=== PATIENT | male | born 1950 | race African-American/Black ===

== ENCOUNTER 2018-12-08 04:13 | Inpatient (IN) | payer MEDICARE, MEDICAID ==
[~2018-12-08] VITALS: Ht 180.3 cm; Wt 73.2 kg
[2018-12-08] MEDS ORDERED: ENALAPRIL 2.5MG/2ML VIAL 2ML IV ONE (05:00)
[2018-12-08] MEDS ORDERED: NITROGLYCERIN OINT 1GM/INCH UDPKT TD ONE (05:00)
[2018-12-08 05:16] LABS: CHLORIDE 116 mEq/L (98-107)
[2018-12-08 05:18] LABS: BASOPHILS % 0.8 % (0.0-2.0); EOSINOPHILS % 1.9 % (0.0-5.0); HEMATOCRIT. 41.8 % (42.0-52.0); HEMOGLOBIN. 13.5 g/dL (14.0-18.0); LYMPHOCYTES % 19.6 % (20.0-50.0); MEAN CORPUSCULAR HEMOGLOBIN 32.5 pg (28.0-32.0); MEAN CORPUSCULAR VOLUME 100.8 fL (80.0-94.0); MEAN PLATELET VOLUME 8.2 fl (7.4-10.4); MONOCYTES % 5.3 % (2.0-8.0); NEUTROPHILS % 72.4 % (40.0-76.0); PLATELET 239 x1000/uL (130-400); RED BLOOD CELL COUNT 4.15 mill/uL (4.7-6.1); RED CELL DISTRIBUTION WIDTH 15.3 % (11.6-14.6)
[2018-12-08 05:23] LABS: BG BASE EXCESS -8.9 mmol/L (-2.0-2.0); BG DEOXYHEMOGLOBIN 9.4 % (0.0-5.0); BG FRACTION INSPIRED OXYGEN 21; BG HCO3 ACT 15.6 mmol/L (22.0-26.0); BG METHEMOGLOBIN 0.1 % (0.0-1.5); BG OXYGEN SATURATION 90.5 % (92.0-98.5); BG OXYHEMOGLOBIN 89.5 % (94.0-97.0); BG PCO2 29.9 mmHg (35.0-45.0); BG PH 7.334 (7.350-7.450); BG SAMPLE SITE RIGHT RADIAL; BG TOTAL HEMOGLOBIN 13.9 g/dL (12.0-18.0); BG VENT MODE ROOM AIR
[2018-12-08] MEDS ORDERED: CLONIDINE 0.1MG TABLET PO PRN (10:00)
[2018-12-08] MEDS ORDERED: ONDANSETRON HCL 4MG/2ML INJ IV PRN (10:00)
[2018-12-08] MEDS ORDERED: DOCUSATE SODIUM 100MG CAPSULE PO PRN (10:00)
[2018-12-08] MEDS ORDERED: LORAZEPAM 0.5MG TABLET PO PRN (10:00)
[2018-12-08] MEDS ORDERED: IPRATROPIUM/ALBUTEROL 0.5-3(2.5)MG/3ML NEB INH PRN (10:00)
[2018-12-08 10:35] LABS: PHOSPHORUS 2.6 mg/dL (2.5-4.9)
[2018-12-08 10:40] LABS: CREATINE KINASE MB FRACTION 6.5 ng/mL (0.5-3.6)
[2018-12-08] MEDS: HYDROCODONE/ACETAMINOPHEN 5/325MG TABLET PO PRN (10:44)
[2018-12-08 11:28] LABS: HEPATITIS B SURFACE ANTIGEN NEGATIVE
[2018-12-08 11:58] LABS: HEPATITIS A AB IGM NEGATIVE (NEGATIVE)
[2018-12-08 12:00] VITALS: BP 124/97
[2018-12-08] MEDS ORDERED: IOHEXOL-350 100 ML BOTTLE ONE (14:21)
[2018-12-08 16:00] VITALS: BP 130/100
[2018-12-08] MEDS ORDERED: FUROSEMIDE 40MG/4ML VIAL IVP SCH (16:30)
[2018-12-08 18:21] LABS: VITAMIN B12 SERUM 917 pg/mL (211-911)
[2018-12-08] MEDS: FUROSEMIDE 40MG/4ML VIAL IVP SCH (18:26)
[2018-12-08] MEDS: ASPIRIN 81MG EC TABLET PO SCH (18:26)
[2018-12-08] MEDS: LISINOPRIL 5MG TABLET PO SCH (18:26)
[2018-12-08] MEDS: NITROGLYCERIN OINT 1GM/INCH UDPKT TD SCH ×2 (18:27→21:57)
[2018-12-08 20:23] VITALS: BP_SYST 118; BP_SYST 128; BP_DIAS 75; BP_DIAS 89
[2018-12-08 22:32] LABS: *AMPHETAMINES SCREEN URINE PRESUMTIVE POSITIVE (NEGATIVE)
[2018-12-08 22:33] LABS: *BARBITURATES SCREEN URINE NEGATIVE (NEGATIVE); *BENZODIAZEPINES SCREEN URINE NEGATIVE (NEGATIVE); *COCAINE SCREEN URINE NEGATIVE (NEGATIVE); METHADONE URINE SCREEN NEGATIVE (NEGATIVE); OPIATES URINE SCREEN NEGATIVE (NEGATIVE)
[2018-12-08 22:34] LABS: CANNABINOID URINE SCREEN PRESUMTIVE POSITIVE (NEGATIVE); PHENCYCLIDINE URINE SCREEN NEGATIVE (NEGATIVE)
[2018-12-09 00:29] VITALS: BP 108/69
[2018-12-09 04:25] VITALS: BP 114/66
[2018-12-09] MEDS: ACETAMINOPHEN 325MG TABLET PO PRN (04:32)
[2018-12-09 06:20] LABS: BASOPHILS % 0.6 % (0.0-2.0); EOSINOPHILS % 2.4 % (0.0-5.0); HEMATOCRIT. 41.1 % (42.0-52.0); HEMOGLOBIN. 13.7 g/dL (14.0-18.0); LYMPHOCYTES % 21.9 % (20.0-50.0); MEAN CORPUSCULAR HEMOGLOBIN 33.1 pg (28.0-32.0); MEAN CORPUSCULAR VOLUME 99.4 fL (80.0-94.0); MEAN PLATELET VOLUME 8.8 fl (7.4-10.4); MONOCYTES % 10.1 % (2.0-8.0); PLATELET 260 x1000/uL (130-400); RED BLOOD CELL COUNT 4.13 mill/uL (4.7-6.1); RED CELL DISTRIBUTION WIDTH 15.1 % (11.6-14.6)
[2018-12-09 06:22] LABS: CHLORIDE 111 mEq/L (98-107)
[2018-12-09] MEDS: NITROGLYCERIN OINT 1GM/INCH UDPKT TD SCH ×3 (06:27→21:10)
[2018-12-09] MEDS: FUROSEMIDE 40MG/4ML VIAL IVP SCH ×2 (06:27→17:47)
[2018-12-09 08:00] VITALS: BP_SYST 112; BP_SYST 116; BP_SYST 120; BP_DIAS 72; BP_DIAS 73; BP_DIAS 76
[2018-12-09] MEDS: ASPIRIN 81MG EC TABLET PO SCH (09:01)
[2018-12-09] MEDS: LISINOPRIL 5MG TABLET PO SCH (09:02)
[2018-12-09 12:00] VITALS: BP_SYST 100; BP_SYST 112; BP_SYST 118; BP_DIAS 59; BP_DIAS 73; BP_DIAS 76
[2018-12-09 16:00] VITALS: BP_SYST 119; BP_SYST 120; BP_SYST 125; BP_DIAS 84; BP_DIAS 85
[2018-12-09 20:00] VITALS: BP_SYST 107; BP_SYST 108; BP_SYST 140; BP_DIAS 62; BP_DIAS 71
[2018-12-09] MEDS: HYDROCODONE/ACETAMINOPHEN 5/325MG TABLET PO PRN (22:57)
[2018-12-10] VITALS: BP_SYST 104; BP_SYST 121; BP_DIAS 60; BP_DIAS 84
[2018-12-10 04:00] VITALS: BP 118/86
[2018-12-10 05:20] LABS: HIV SCREEN 4G Non Reactive (Non Reactive)
[2018-12-10] MEDS: NITROGLYCERIN OINT 1GM/INCH UDPKT TD SCH (06:14)
[2018-12-10] MEDS: FUROSEMIDE 40MG/4ML VIAL IVP SCH (06:15)
[2018-12-10 06:35] LABS: BASOPHILS % 0.6 % (0.0-2.0); EOSINOPHILS % 2.8 % (0.0-5.0); HEMATOCRIT. 44.1 % (42.0-52.0); HEMOGLOBIN. 14.4 g/dL (14.0-18.0); LYMPHOCYTES % 23.8 % (20.0-50.0); MEAN CORPUSCULAR HEMOGLOBIN 32.2 pg (28.0-32.0); MEAN CORPUSCULAR VOLUME 98.5 fL (80.0-94.0); MEAN PLATELET VOLUME 8.6 fl (7.4-10.4); NEUTROPHILS % 61.8 % (40.0-76.0); PLATELET 276 x1000/uL (130-400); RED BLOOD CELL COUNT 4.47 mill/uL (4.7-6.1)
[2018-12-10 07:03] LABS: CHLORIDE 106 mEq/L (98-107)
[2018-12-10 08:00] VITALS: BP_SYST 119; BP_SYST 92; BP_SYST 97; BP_DIAS 63; BP_DIAS 69; BP_DIAS 76
[2018-12-10] MEDS: LISINOPRIL 5MG TABLET PO SCH (09:00)
[2018-12-10] MEDS: ASPIRIN 81MG EC TABLET PO SCH (09:28)
[2018-12-10 13:00] VITALS: BP 90/70
[2018-12-10] MEDS: ACETAMINOPHEN 325MG TABLET PO PRN (13:18)
[2018-12-10 15:52] VITALS: BP 99/69
[2018-12-10 20:00] VITALS: BP 103/68
[2018-12-10] MEDS: FUROSEMIDE 40MG TABLET PO SCH (21:01)
[2018-12-11] VITALS: BP 112/78
[2018-12-11 04:00] VITALS: BP_SYST 93; BP_SYST 96; BP_SYST 99; BP_DIAS 70; BP_DIAS 71; BP_DIAS 72
[2018-12-11 06:49] LABS: BASOPHILS % 0.9 % (0.0-2.0); EOSINOPHILS % 2.2 % (0.0-5.0); HEMATOCRIT. 49.7 % (42.0-52.0); HEMOGLOBIN. 16.7 g/dL (14.0-18.0); LYMPHOCYTES % 22.8 % (20.0-50.0); MEAN CORPUSCULAR HEMOGLOBIN 33.1 pg (28.0-32.0); MEAN CORPUSCULAR VOLUME 98.3 fL (80.0-94.0); MEAN PLATELET VOLUME 8.5 fl (7.4-10.4); MONOCYTES % 11.6 % (2.0-8.0); NEUTROPHILS % 62.5 % (40.0-76.0); PLATELET 289 x1000/uL (130-400); RED BLOOD CELL COUNT 5.06 mill/uL (4.7-6.1); RED CELL DISTRIBUTION WIDTH 14.6 % (11.6-14.6)
[2018-12-11 07:51] VITALS: BP 95/69
[2018-12-11 08:17] LABS: CHLORIDE 102 mEq/L (98-107)
[2018-12-11] MEDS: ASPIRIN 81MG EC TABLET PO SCH (08:44)
[2018-12-11] MEDS: FUROSEMIDE 40MG TABLET PO SCH (08:44)
[2018-12-11] MEDS ORDERED: LISINOPRIL 2.5MG TABLET PO SCH (09:00)
[2018-12-11 12:17] VITALS: BP 129/79
[2018-12-11] MEDS ORDERED: FURO40TA5 PO (15:26)
[2018-12-11] MEDS ORDERED: LISI2.5T47 PO (15:26)
[2018-12-11] MEDS ORDERED: ASPI-1158 PO (15:26)
[2018-12-11] MEDS ORDERED: CARV3.1242 MT (15:28)
[2018-12-11 15:31] VITALS: BP 129/79
[2018-12-11 15:56] VITALS: BP 127/79
== END 2018-12-11 16:10 | disposition home health service (06) | DRG 291 ==
LOC: ER 04:13 → 6WST 05:25 → EDBEDREQ 05:28 → EDBEDREQTM 05:28 → ENRESERV 07:18
PROVIDERS: ADMIT Internal Medicine; ATTEND Internal Medicine
DX: I11.0 Hypertensive heart disease with heart failure (principal); J96.01 Acute respiratory failure with hypoxia; E44.0 Moderate protein-calorie malnutrition; E87.2 Acidosis; J90 Pleural effusion, not elsewhere classified; I50.23 Acute on chronic systolic (congestive) heart failure; I42.0 Dilated cardiomyopathy; D53.9 Nutritional anemia, unspecified; E78.5 Hyperlipidemia, unspecified; F10.10 Alcohol abuse, uncomplicated; E78.00 Pure hypercholesterolemia, unspecified; F12.90 Cannabis use, unspecified, uncomplicated; F15.90 Other stimulant use, unspecified, uncomplicated; F17.200 Nicotine dependence, unspecified, uncomplicated; S82.892A Other fracture of left lower leg, initial encounter for closed fracture; X58.XXXA Exposure to other specified factors, initial encounter; R74.0 Nonspecific elevation of levels of transaminase and lactic acid dehydrogenase [LDH]; Z59.0 Homelessness; Z79.82 Long term (current) use of aspirin; Z79.899 Other long term (current) drug therapy; Z82.49 Family history of ischemic heart disease and other diseases of the circulatory system; Z87.11 Personal history of peptic ulcer disease; Y93.89 Activity, other specified; Y92.89 Other specified places as the place of occurrence of the external cause; Y99.8 Other external cause status; Z68.22 Body mass index [BMI] 22.0-22.9, adult
CPT/HCPCS: 36415; 36600; 71045; 71275; 76700; 80048; 80061; 80076; 80305; 82375; 82550; 82553; 82607; 82805; 82962; 83605; 83735; 83880; 84100; 84145; 84443; 84484; 85379; 86705; 86709; 86803; 87340; 87389; 93005; 93306; 93970; 96374; 99285; J1940; J3490; Q9967

== ENCOUNTER 2020-09-09 23:14 | Inpatient (IN) | payer BC, OTHER ==
[~2020-09-09] VITALS: Ht 177.8 cm; Wt 70.8 kg
[~2020-09-09 23:14] MED LIST: ALBU18HF2 IH; ASPI-1406 PO; CARV3.1242 MT; COR6 PO; FURO-151 MT; FURO40TA5 PO; LISI2.5T47 PO; LOSA25TA3 PO
[2020-09-10] MEDS ORDERED: FUROSEMIDE 40MG/4ML VIAL IV ONE
[2020-09-10] MEDS ORDERED: NITROGLYCERIN OINT 1GM/INCH UDPKT TD ONE
[2020-09-10] MEDS ORDERED: ASPIRIN 81MG TABLET PO ONE
[2020-09-10 00:12] LABS: BASOPHILS % 0.5 % (0.0-2.0); EOSINOPHILS % 0.2 % (0.0-5.0); HEMATOCRIT. 46.2 % (42.0-52.0); HEMOGLOBIN. 14.4 g/dL (14.0-18.0); MEAN CORPUSCULAR HEMOGLOBIN 31.4 pg (28.0-32.0); MEAN CORPUSCULAR VOLUME 100.9 fL (80.0-94.0); MEAN PLATELET VOLUME 10.1 fl (7.4-10.4); MONOCYTES % 7.4 % (2.0-8.0); NEUTROPHILS % 70.9 % (40.0-76.0); PLATELET 245 x1000/uL (130-400); RED BLOOD CELL COUNT 4.58 mill/uL (4.7-6.1); RED CELL DISTRIBUTION WIDTH 17.8 % (11.6-14.6)
[2020-09-10 00:24] LABS: INR 1.3; PARTIAL THROMBOPLASTIN TIME 29.1 sec (23.4-31.0); PROTHROMBIN TIME 13.1 sec (9.6-11.0)
[2020-09-10 00:29] LABS: CHLORIDE 114 mEq/L (98-107)
[2020-09-10 01:07] LABS: BG BASE EXCESS -10.9 mmol/L (-2.0-2.0); BG CARBOXYHEMOGLOBIN 0.2 % (0.5-1.5); BG DEOXYHEMOGLOBIN 0.3 % (0.0-5.0); BG FRACTION INSPIRED OXYGEN 100; BG HCO3 ACT 14.6 mmol/L (22.0-26.0); BG METHEMOGLOBIN 0.3 % (0.0-1.5); BG OXYGEN SATURATION 99.7 % (92.0-98.5); BG OXYHEMOGLOBIN 99.2 % (94.0-97.0); BG PCO2 32.4 mmHg (35.0-45.0); BG PH 7.273 (7.350-7.450); BG PO2 428.3 mmHg (75.0-100.0); BG SAMPLE SITE RIGHT BRACHIAL; BG TOTAL HEMOGLOBIN 15.2 g/dL (12.0-18.0); BG VENT MODE MASK - BIPAP
[2020-09-10 10:11] VITALS: BP 133/115
[2020-09-10 12:22] VITALS: BP 111/62
[2020-09-10 14:00] VITALS: BP 91/56
[2020-09-10] MEDS ORDERED: ONDANSETRON HCL 4MG/2ML INJ IV PRN (15:45)
[2020-09-10] MEDS ORDERED: CLONIDINE 0.1MG TABLET PO PRN (15:45)
[2020-09-10] MEDS ORDERED: ACETAMINOPHEN 325MG TABLET PO PRN (15:45)
[2020-09-10] MEDS: LOSARTAN POTASSIUM 25 MG TABLET PO SCH (15:45)
[2020-09-10 16:00] VITALS: BP 149/79
[2020-09-10] MEDS: FUROSEMIDE 40MG/4ML VIAL IVP SCH (17:35)
[2020-09-10] MEDS: ENOXAPARIN 40MG/0.4ML SYR SUBCUT SCH (17:36)
[2020-09-10] MEDS: ASPIRIN 81MG EC TABLET PO SCH (17:37)
[2020-09-10 18:00] VITALS: BP 127/64
[2020-09-10 20:00] VITALS: BP 105/72
[2020-09-10] MEDS: CARVEDILOL 6.25 MG TABLET PO SCH (20:45)
[2020-09-11] VITALS (9 sets, daily range): BP systolic 81–123; BP diastolic 42–66
[2020-09-11 01:09] LABS: CREATINE KINASE MB FRACTION 3.2 ng/mL (0.5-3.6)
[2020-09-11] MEDS: FUROSEMIDE 40MG/4ML VIAL IVP SCH ×2 (07:11→17:15)
[2020-09-11 07:15] LABS: CREATINE KINASE MB FRACTION 2.8 ng/mL (0.5-3.6)
[2020-09-11 07:21] LABS: BASOPHILS % 0.5 % (0.0-2.0); EOSINOPHILS % 1.1 % (0.0-5.0); HEMATOCRIT. 38.8 % (42.0-52.0); HEMOGLOBIN. 12.5 g/dL (14.0-18.0); LYMPHOCYTES % 20.8 % (20.0-50.0); MEAN CORPUSCULAR HEMOGLOBIN 31.1 pg (28.0-32.0); MEAN CORPUSCULAR VOLUME 96.9 fL (80.0-94.0); MEAN PLATELET VOLUME 9.8 fl (7.4-10.4); NEUTROPHILS % 67.6 % (40.0-76.0); PLATELET 196 x1000/uL (130-400); RED CELL DISTRIBUTION WIDTH 16.1 % (11.6-14.6)
[2020-09-11] MEDS: ASPIRIN 81MG EC TABLET PO SCH (08:47)
[2020-09-11] MEDS: LOSARTAN POTASSIUM 25 MG TABLET PO SCH (08:47)
[2020-09-11] MEDS: CARVEDILOL 6.25 MG TABLET PO SCH ×2 (08:48→21:00)
[2020-09-11] MEDS: ENOXAPARIN 40MG/0.4ML SYR SUBCUT SCH (17:16)
[2020-09-12] VITALS (9 sets, daily range): BP systolic 91–134; BP diastolic 40–76
[2020-09-12] MEDS: FUROSEMIDE 40MG/4ML VIAL IVP SCH ×2 (05:23→17:09)
[2020-09-12] MEDS: LOSARTAN POTASSIUM 25 MG TABLET PO SCH (09:16)
[2020-09-12] MEDS: CARVEDILOL 6.25 MG TABLET PO SCH (09:16)
[2020-09-12] MEDS: ASPIRIN 81MG EC TABLET PO SCH (09:16)
[2020-09-12] MEDS: ENOXAPARIN 40MG/0.4ML SYR SUBCUT SCH (17:09)
== END 2020-09-12 19:45 | disposition home or self-care (01) | DRG 291 ==
LOC: ER 23:46 → 5EST 09-10 02:07 → ENRESERV 09-10 08:11 → ER 09-10 08:44
PROVIDERS: ADMIT Internal Medicine; ATTEND Internal Medicine
PROC: 5A09357 Assistance with Respiratory Ventilation, Less than 24 Consecutive Hours, Continuous Positive Airway Pressure (ICD-10-PCS; principal; 2020-09-10)
DX: I13.0 Hypertensive heart and chronic kidney disease with heart failure and stage 1 through stage 4 chronic kidney disease, or unspecified chronic kidney disease (principal); I50.23 Acute on chronic systolic (congestive) heart failure; J96.01 Acute respiratory failure with hypoxia; N17.9 Acute kidney failure, unspecified; E87.2 Acidosis; K76.1 Chronic passive congestion of liver; E78.5 Hyperlipidemia, unspecified; J44.9 Chronic obstructive pulmonary disease, unspecified; I43 Cardiomyopathy in diseases classified elsewhere; N18.9 Chronic kidney disease, unspecified; E87.8 Other disorders of electrolyte and fluid balance, not elsewhere classified; I11.0 Hypertensive heart disease with heart failure; Z87.891 Personal history of nicotine dependence; Z91.19 Patient's noncompliance with other medical treatment and regimen; Z91.14 Patient's other noncompliance with medication regimen; Z79.899 Other long term (current) drug therapy; Z79.82 Long term (current) use of aspirin
CPT/HCPCS: 36415; 36600; 71045; 80048; 80053; 82375; 82550; 82553; 82805; 83880; 84484; 85025; 93005; 93306; 94660; 96374; 99291; J1650; J1940

== ENCOUNTER 2020-10-22 22:13 | Inpatient (IN) | payer BC, OTHER ==
[~2020-10-22] VITALS: Ht 172.7 cm; Wt 73.6 kg
[~2020-10-22 22:13] MED LIST changes: -CARV3.1242 MT; -FURO-151 MT; -LISI2.5T47 PO
[2020-10-22 23:30] LABS: BASOPHILS % 0.7 % (0.0-2.0); EOSINOPHILS % 4.5 % (0.0-5.0); HEMATOCRIT. 35.9 % (42.0-52.0); HEMOGLOBIN. 12.2 g/dL (14.0-18.0); LYMPHOCYTES % 20.6 % (20.0-50.0); MEAN CORPUSCULAR HEMOGLOBIN 31.1 pg (28.0-32.0); MEAN CORPUSCULAR VOLUME 91.8 fL (80.0-94.0); MEAN PLATELET VOLUME 7.6 fl (7.4-10.4); MONOCYTES % 14.3 % (2.0-8.0); NEUTROPHILS % 59.9 % (40.0-76.0); PLATELET 366 x1000/uL (130-400); RED BLOOD CELL COUNT 3.91 mill/uL (4.7-6.1); RED CELL DISTRIBUTION WIDTH 14.5 % (11.6-14.6)
[2020-10-22 23:38] LABS: CHLORIDE 108 mEq/L (98-107)
[2020-10-23 00:02] LABS: CLARITY URINE CLEAR (CLEAR); COLOR URINE YELLOW (YELLOW); KETONES URINE NEGATIVE (NEGATIVE); LEUKOCYTE ESTERASE URINE NEGATIVE (NEGATIVE); NITRITE URINE NEGATIVE (NEGATIVE); OCCULT BLOOD URINE NEGATIVE (NEGATIVE); PH URINE 5.5 (4.5-8.0); PROTEIN URINE 1+ (NEGATIVE); SPECIFIC GRAVITY URINE 1.023 (1.005-1.030); UROBILINOGEN URINE 0.2 E.U./dL (0.2-1.0)
[2020-10-23] MEDS ORDERED: CLONIDINE 0.1MG TABLET PO PRN (00:15)
[2020-10-23] MEDS ORDERED: ONDANSETRON HCL 4MG/2ML INJ IV PRN (00:15)
[2020-10-23] MEDS: SODIUM CHLORIDE 0.9% 1,000 ML IV SCH ×2 (00:40→18:02)
[2020-10-23] MEDS: ACETAMINOPHEN 325MG TABLET PO PRN ×2 (00:50→22:19)
[2020-10-23] MEDS: ASPIRIN 81MG EC TABLET PO SCH (02:32)
[2020-10-23 04:45] LABS: CREATINE KINASE 169 IU/L (39-308)
[2020-10-23 04:46] LABS: CREATINE KINASE MB FRACTION 1.3 ng/mL (0.5-3.6)
[2020-10-23] MEDS ORDERED: HEPARIN SODIUM 1,000 UNIT/1ML VIAL IV ONE (07:33)
[2020-10-23] MEDS: CARVEDILOL 6.25 MG TABLET PO SCH ×2 (09:00→20:43)
[2020-10-23] MEDS: LOSARTAN POTASSIUM 25 MG TABLET PO SCH (09:00)
[2020-10-23] MEDS: FUROSEMIDE 40MG TABLET PO SCH ×2 (09:00→20:46)
[2020-10-23] MEDS ORDERED: IODIXANOL 320MG/ML 200ML BOTTLE ONE (09:49)
[2020-10-23] MEDS ORDERED: VERAPAMIL HCL 2.5 MG/1 ML 2ML VIAL IV ONE (09:49)
[2020-10-23] MEDS ORDERED: LIDOCAINE HCL 1% 20ML VIAL (Pyxis) INJ ONE (09:49)
[2020-10-23] MEDS ORDERED: MIDAZOLAM HCL 2 MG/2 ML VIAL ONE (09:59)
[2020-10-23] MEDS ORDERED: FENTANYL CITRATE/PF 50MCG/ML 2ML VIAL ONE (09:59)
[2020-10-23] MEDS ORDERED: ATROPINE SULFATE 1MG/10ML SYR IV PRN (12:30)
[2020-10-23 14:30] VITALS: BP 105/66
[2020-10-23 16:08] VITALS: BP 124/66
[2020-10-23] MEDS ORDERED: ACET167L14 PO (16:21)
[2020-10-23] MEDS ORDERED: *PATIENT'S OWN MEDICATION STORAGE XX SCH (16:45)
[2020-10-23 17:54] VITALS: BP 107/75
[2020-10-23 18:24] LABS: CREATINE KINASE 120 IU/L (39-308)
[2020-10-23 18:25] LABS: CREATINE KINASE MB FRACTION < 1.0 ng/mL (0.5-3.6)
[2020-10-23 20:02] VITALS: BP 105/55
[2020-10-23 22:02] VITALS: BP 122/85
[2020-10-23] MEDS ORDERED: MORPHINE SULFATE 2 MG/ML CPJ (NOT FOR IM USE) IV PRN (23:45)
[2020-10-24] VITALS (12 sets, daily range): BP systolic 94–129; BP diastolic 55–83
[2020-10-24] MEDS: HYDROCODONE/ACETAMINOPHEN 5/325MG TABLET PO PRN ×4 (00:41→15:40)
[2020-10-24 06:22] LABS: BASOPHILS % 0.8 % (0.0-2.0); HEMATOCRIT. 34.1 % (42.0-52.0); HEMOGLOBIN. 11.3 g/dL (14.0-18.0); LYMPHOCYTES % 24.1 % (20.0-50.0); MEAN CORPUSCULAR HEMOGLOBIN 30.7 pg (28.0-32.0); MEAN CORPUSCULAR VOLUME 92.9 fL (80.0-94.0); MEAN PLATELET VOLUME 7.9 fl (7.4-10.4); MONOCYTES % 10.5 % (2.0-8.0); NEUTROPHILS % 59.6 % (40.0-76.0); PLATELET 395 x1000/uL (130-400); RED BLOOD CELL COUNT 3.67 mill/uL (4.7-6.1)
[2020-10-24 06:30] LABS: CHLORIDE 106 mEq/L (98-107)
[2020-10-24] MEDS ORDERED: DIAZEPAM 5 MG TABLET PO NR (08:00)
[2020-10-24] MEDS: ASPIRIN 81MG EC TABLET PO SCH (09:16)
[2020-10-24] MEDS: FUROSEMIDE 40MG TABLET PO SCH ×2 (09:16→21:45)
[2020-10-24] MEDS: CARVEDILOL 6.25 MG TABLET PO SCH ×2 (09:17→21:45)
[2020-10-24] MEDS: LOSARTAN POTASSIUM 25 MG TABLET PO SCH (09:17)
[2020-10-24] MEDS: SODIUM CHLORIDE 0.9% 1,000 ML IV SCH (09:52)
[2020-10-24] MEDS ORDERED: DIPHENHYDRAMINE 25MG CAPSULE PO PRN (17:00)
[2020-10-24] MEDS: HYDROCORTISONE 1% CREAM 30GM TOP SCH (21:46)
[2020-10-25] VITALS (11 sets, daily range): BP systolic 100–119; BP diastolic 29–69
[2020-10-25] MEDS: HYDROCODONE/ACETAMINOPHEN 5/325MG TABLET PO PRN ×3 (00:01→10:19)
[2020-10-25] MEDS: SODIUM CHLORIDE 0.9% 1,000 ML IV SCH ×2 (02:43→18:55)
[2020-10-25] MEDS: HYDROCORTISONE 1% CREAM 30GM TOP SCH ×2 (05:30→14:24)
[2020-10-25] MEDS: LOSARTAN POTASSIUM 25 MG TABLET PO SCH (08:33)
[2020-10-25] MEDS: ASPIRIN 81MG EC TABLET PO SCH (08:33)
[2020-10-25] MEDS: FUROSEMIDE 40MG TABLET PO SCH (08:33)
[2020-10-25] MEDS: CARVEDILOL 6.25 MG TABLET PO SCH (08:41)
== END 2020-10-25 22:23 | disposition home or self-care (01) | DRG 286 ==
LOC: ER 22:13 → ENRESERV 10-23 08:29 → 6WST 10-23 10:13 → 3WST 10-23 15:41
PROVIDERS: ADMIT Internal Medicine; ATTEND Internal Medicine
PROC: 4A023N7 Measurement of Cardiac Sampling and Pressure, Left Heart, Percutaneous Approach (ICD-10-PCS; principal; 2020-10-23)
PROC: B211YZZ Fluoroscopy of Multiple Coronary Arteries using Other Contrast (ICD-10-PCS; 2020-10-23)
DX: I13.0 Hypertensive heart and chronic kidney disease with heart failure and stage 1 through stage 4 chronic kidney disease, or unspecified chronic kidney disease (principal); I50.23 Acute on chronic systolic (congestive) heart failure; G99.2 Myelopathy in diseases classified elsewhere; I25.10 Atherosclerotic heart disease of native coronary artery without angina pectoris; E78.5 Hyperlipidemia, unspecified; Z20.822 Contact with and (suspected) exposure to COVID-19; I42.9 Cardiomyopathy, unspecified; M47.812 Spondylosis without myelopathy or radiculopathy, cervical region; N18.9 Chronic kidney disease, unspecified; G89.29 Other chronic pain; M48.02 Spinal stenosis, cervical region; Z79.899 Other long term (current) drug therapy; Z79.82 Long term (current) use of aspirin; M25.511 Pain in right shoulder
CPT/HCPCS: 36415; 71045; 72141; 80048; 80053; 81003; 82550; 82553; 83880; 84484; 85025; 87426; 93005; 93458; 97162; 99285; C1769; C1887; C1893; J1644; J2250; J3010; J3490; Q0163; Q9967

== ENCOUNTER 2020-12-01 23:40 | Inpatient (IN) | payer BC, OTHER ==
[~2020-12-01] VITALS: Ht 177.8 cm; Wt 74.0 kg
[~2020-12-01 23:40] MED LIST changes: +ACET167L14 PO
[2020-12-02] MEDS ORDERED: ASPIRIN 325MG EC TABLET PO ONE (00:15)
[2020-12-02] MEDS: NITROGLYCERIN 0.4MG TABLET SL SL PRN ×2 (00:22→00:25)
[2020-12-02 00:42] LABS: CHLORIDE 105 mEq/L (98-107)
[2020-12-02 00:44] LABS: BASOPHILS % 0.6 % (0.0-2.0); EOSINOPHILS % 1.5 % (0.0-5.0); HEMATOCRIT. 35.6 % (42.0-52.0); HEMOGLOBIN. 11.8 g/dL (14.0-18.0); LYMPHOCYTES % 16.4 % (20.0-50.0); MEAN CORPUSCULAR HEMOGLOBIN 30.1 pg (28.0-32.0); MEAN CORPUSCULAR VOLUME 90.3 fL (80.0-94.0); NEUTROPHILS % 67.5 % (40.0-76.0); PLATELET 309 x1000/uL (130-400); RED BLOOD CELL COUNT 3.94 mill/uL (4.7-6.1); RED CELL DISTRIBUTION WIDTH 15.9 % (11.6-14.6)
[2020-12-02] MEDS ORDERED: MORPHINE SULFATE 4 MG/ML CPJ (NOT FOR IM USE) IV STA (01:13)
[2020-12-02] MEDS ORDERED: ONDANSETRON HCL 4MG/2ML INJ IV STA (01:13)
[2020-12-02] MEDS ORDERED: POTASSIUM CHLORIDE INJ 40 MEQ in DEXT 5% WATER 500 ML IV NR (03:00)
[2020-12-02] MEDS: HEPARIN 25,000 UNITS PREMIX 250 ML IV SCH (05:17)
[2020-12-02 09:30] VITALS: BP 118/82
[2020-12-02] MEDS ORDERED: HEPARIN BOLUS PRN aPTT <30 IV (10:00)
[2020-12-02 12:00] VITALS: BP_SYST 118; BP_SYST 95; BP_DIAS 54; BP_DIAS 82
[2020-12-02] MEDS: HEPARIN BOLUS PRN aPTT 30-44 IV (12:51)
[2020-12-02] MEDS: HYDROCODONE/ACETAMINOPHEN 10/325MG TABLET PO PRN (13:15)
[2020-12-02] MEDS ORDERED: CLONIDINE 0.1MG TABLET PO PRN (13:30)
[2020-12-02] MEDS ORDERED: ONDANSETRON HCL 4MG/2ML INJ IV PRN (13:30)
[2020-12-02] MEDS ORDERED: IPRATROPIUM/ALBUTEROL 0.5-3(2.5)MG/3ML NEB HHN PRN (13:30)
[2020-12-02] MEDS ORDERED: DEXTROSE 50% WATER 50ML SYRINGE IV PRN (14:45)
[2020-12-02 15:56] VITALS: BP 98/68
[2020-12-02 16:06] LABS: HEMATOCRIT. 33.9 % (42.0-52.0); HEMOGLOBIN. 11.4 g/dL (14.0-18.0); MEAN CORPUSCULAR HEMOGLOBIN 30.4 pg (28.0-32.0); MEAN CORPUSCULAR VOLUME 90.5 fL (80.0-94.0); MEAN PLATELET VOLUME 8.4 fl (7.4-10.4); PLATELET 287 x1000/uL (130-400); RED BLOOD CELL COUNT 3.75 mill/uL (4.7-6.1); RED CELL DISTRIBUTION WIDTH 16.1 % (11.6-14.6)
[2020-12-02 16:13] LABS: CHLORIDE 105 mEq/L (98-107)
[2020-12-02] MEDS: BLOOD SUGAR DIAGNOSTIC STRIP TEST SCH ×2 (17:17→21:22)
[2020-12-02] MEDS: INSULIN LISPRO 100 UNITS/ML SUBCUT SCH ×2 (17:40→21:00)
[2020-12-02] MEDS: ASPIRIN 81MG EC TABLET PO SCH (17:49)
[2020-12-02 20:19] VITALS: BP 113/86
[2020-12-02] MEDS: CARVEDILOL 6.25 MG TABLET PO SCH (20:26)
[2020-12-02] MEDS: FUROSEMIDE 40MG TABLET PO SCH (20:26)
[2020-12-02] MEDS: DEXT 5%/0.45% NACL 1000ML 1,000 ML IV SCH (20:26)
[2020-12-02] MEDS: ACETAMINOPHEN 325MG TABLET PO PRN (22:02)
[2020-12-02 23:08] LABS: PLATELET ESTIMATE NORMAL
[2020-12-02 23:58] VITALS: BP 122/58
[2020-12-03 00:55] LABS: CREATINE KINASE MB FRACTION 15.8 ng/mL (0.5-3.6)
[2020-12-03] MEDS: HEPARIN BOLUS PRN aPTT 30-44 IV ×2 (03:00→16:35)
[2020-12-03 03:09] VITALS: BP 92/62
[2020-12-03] MEDS: DEXT 5%/0.45% NACL 1000ML 1,000 ML IV SCH ×2 (03:20→15:08)
[2020-12-03 05:45] VITALS: BP 106/63
[2020-12-03] MEDS: HYDROCODONE/ACETAMINOPHEN 10/325MG TABLET PO PRN (05:47)
[2020-12-03] MEDS: INSULIN LISPRO 100 UNITS/ML SUBCUT SCH ×4 (05:59→20:55)
[2020-12-03] MEDS: BLOOD SUGAR DIAGNOSTIC STRIP TEST SCH ×4 (05:59→20:55)
[2020-12-03 08:00] VITALS: BP 103/63
[2020-12-03] MEDS: ASPIRIN 81MG EC TABLET PO SCH (08:54)
[2020-12-03] MEDS: CARVEDILOL 6.25 MG TABLET PO SCH ×2 (08:54→20:53)
[2020-12-03] MEDS: LOSARTAN POTASSIUM 25 MG TABLET PO SCH (08:54)
[2020-12-03] MEDS: FUROSEMIDE 40MG TABLET PO SCH ×2 (08:54→20:55)
[2020-12-03 09:25] LABS: CHLORIDE 104 mEq/L (98-107)
[2020-12-03 09:32] LABS: BASOPHILS % 1.1 % (0.0-2.0); EOSINOPHILS % 2.4 % (0.0-5.0); HEMATOCRIT. 34.4 % (42.0-52.0); HEMOGLOBIN. 11.5 g/dL (14.0-18.0); LDL CHOLESTEROL 63 mg/dL (5-100); LYMPHOCYTES % 20.7 % (20.0-50.0); MEAN CORPUSCULAR HEMOGLOBIN 30.4 pg (28.0-32.0); MEAN CORPUSCULAR VOLUME 90.9 fL (80.0-94.0); MEAN PLATELET VOLUME 8.4 fl (7.4-10.4); NEUTROPHILS % 63.8 % (40.0-76.0); PLATELET 271 x1000/uL (130-400); RED BLOOD CELL COUNT 3.79 mill/uL (4.7-6.1); RED CELL DISTRIBUTION WIDTH 16.2 % (11.6-14.6)
[2020-12-03 09:34] LABS: HDL CHOLESTEROL 44 mg/dL (40-59)
[2020-12-03] MEDS: ACETAMINOPHEN 325MG TABLET PO PRN (10:42)
[2020-12-03] MEDS ORDERED: POTASSIUM CHLORIDE INJ 40 MEQ in DEXT 5% WATER 250 ML IV NR (13:00)
[2020-12-03] MEDS: HEPARIN 25,000 UNITS PREMIX 250 ML IV SCH (14:55)
[2020-12-03] MEDS ORDERED: POTASSIUM CHLORIDE 20MEQ TABLET SR PO NR (15:15)
[2020-12-03 16:00] VITALS: BP 100/60
[2020-12-03] MEDS ORDERED: SUMATRIPTAN SUCCINATE 6MG/0.5ML VIAL SUBCUT NR (16:00)
[2020-12-03] MEDS ORDERED: MORPHINE SULFATE 2 MG/ML CPJ (NOT FOR IM USE) IV NR (17:30)
[2020-12-03 20:00] VITALS: BP 89/62
[2020-12-03] MEDS ORDERED: NITROGLYCERIN OINT 1GM/INCH UDPKT TD PRN (20:00)
[2020-12-03] MEDS ORDERED: MORPHINE SULFATE 2 MG/ML CPJ (NOT FOR IM USE) IV PRN (22:00)
[2020-12-04] VITALS (14 sets, daily range): BP systolic 94–120; BP diastolic 45–82
[2020-12-04] MEDS: DEXT 5%/0.45% NACL 1000ML 1,000 ML IV SCH ×2 (05:45→15:43)
[2020-12-04] MEDS: INSULIN LISPRO 100 UNITS/ML SUBCUT SCH ×4 (06:17→20:42)
[2020-12-04] MEDS: BLOOD SUGAR DIAGNOSTIC STRIP TEST SCH ×4 (06:17→20:42)
[2020-12-04 06:42] LABS: BASOPHILS % 0.7 % (0.0-2.0); EOSINOPHILS % 2.5 % (0.0-5.0); HEMATOCRIT. 34.7 % (42.0-52.0); HEMOGLOBIN. 11.5 g/dL (14.0-18.0); LYMPHOCYTES % 22.4 % (20.0-50.0); MEAN CORPUSCULAR HEMOGLOBIN 29.9 pg (28.0-32.0); MEAN CORPUSCULAR VOLUME 90.3 fL (80.0-94.0); MEAN PLATELET VOLUME 8.8 fl (7.4-10.4); MONOCYTES % 12.6 % (2.0-8.0); NEUTROPHILS % 61.8 % (40.0-76.0); PLATELET 288 x1000/uL (130-400); RED BLOOD CELL COUNT 3.84 mill/uL (4.7-6.1); RED CELL DISTRIBUTION WIDTH 16.3 % (11.6-14.6)
[2020-12-04 07:40] LABS: CHLORIDE 105 mEq/L (98-107)
[2020-12-04] MEDS ORDERED: HEPARIN SODIUM 1,000 UNIT/1ML VIAL IV ONE (08:06)
[2020-12-04] MEDS: ASPIRIN 81MG EC TABLET PO SCH (09:00)
[2020-12-04] MEDS: FUROSEMIDE 40MG TABLET PO SCH ×2 (09:00→20:49)
[2020-12-04] MEDS: CARVEDILOL 6.25 MG TABLET PO SCH ×2 (09:00→20:48)
[2020-12-04] MEDS: LOSARTAN POTASSIUM 25 MG TABLET PO SCH (09:00)
[2020-12-04] MEDS ORDERED: FENTANYL CITRATE/PF 50MCG/ML 2ML VIAL ONE ×2 (10:19→11:47)
[2020-12-04] MEDS ORDERED: MIDAZOLAM HCL 2 MG/2 ML VIAL ONE (10:19)
[2020-12-04] MEDS ORDERED: IODIXANOL 320MG/ML 100 ML BOTTLE IV ONE (10:27)
[2020-12-04] MEDS ORDERED: IOHEXOL-300 100 ML BOTTLE ONE (11:12)
[2020-12-04] MEDS ORDERED: ASPIRIN 325MG TABLET ONE (11:37)
[2020-12-04] MEDS ORDERED: CLOPIDOGREL 75MG TABLET ONE (11:37)
[2020-12-04] MEDS ORDERED: FENTANYL CITRATE/PF 50MCG/ML 5ML VIAL ONE (12:48)
[2020-12-04] MEDS ORDERED: MIDAZOLAM HCL 5 MG/5 ML VIAL ONE (12:48)
[2020-12-04] MEDS ORDERED: ATROPINE SULFATE 1MG/10ML SYR IV PRN (13:15)
[2020-12-04] MEDS: HYDROCODONE/ACETAMINOPHEN 10/325MG TABLET PO PRN (15:42)
[2020-12-04] MEDS: ACETAMINOPHEN 325MG TABLET PO PRN (20:52)
[2020-12-05] VITALS (9 sets, daily range): BP systolic 92–141; BP diastolic 40–67
[2020-12-05] MEDS: DEXT 5%/0.45% NACL 1000ML 1,000 ML IV SCH (04:44)
[2020-12-05] MEDS: BLOOD SUGAR DIAGNOSTIC STRIP TEST SCH ×3 (06:49→16:42)
[2020-12-05] MEDS: INSULIN LISPRO 100 UNITS/ML SUBCUT SCH ×3 (06:57→16:42)
[2020-12-05 07:26] LABS: HEMATOCRIT. 34.9 % (42.0-52.0); HEMOGLOBIN. 11.3 g/dL (14.0-18.0); MEAN PLATELET VOLUME 8.4 fl (7.4-10.4); PLATELET 251 x1000/uL (130-400); RED BLOOD CELL COUNT 3.76 mill/uL (4.7-6.1); RED CELL DISTRIBUTION WIDTH 16.6 % (11.6-14.6)
[2020-12-05 07:47] LABS: CHLORIDE 107 mEq/L (98-107)
[2020-12-05] MEDS: CARVEDILOL 6.25 MG TABLET PO SCH (08:17)
[2020-12-05] MEDS: ASPIRIN 81MG EC TABLET PO SCH (08:19)
[2020-12-05] MEDS: FUROSEMIDE 40MG TABLET PO SCH (08:19)
[2020-12-05] MEDS: LOSARTAN POTASSIUM 25 MG TABLET PO SCH (08:19)
[2020-12-05] MEDS ORDERED: CLOPIDOGREL 75MG TABLET PO SCH (09:00)
[2020-12-05] MEDS: HYDROCODONE/ACETAMINOPHEN 10/325MG TABLET PO PRN (10:01)
[2020-12-06 09:41] LABS: PLATELET ESTIMATE NORMAL
== END 2020-12-05 18:02 | disposition home or self-care (01) | DRG 246 ==
LOC: ER 23:40 → 8WST 12-02 01:22 → EDBEDREQTM 12-02 01:31 → EDBEDREQ 12-02 01:31 → ENRESERV 12-02 07:43 → 8WST 12-02 09:31 → 3WST 12-04 12:30
PROVIDERS: ADMIT Internal Medicine; ATTEND Internal Medicine
PROC: 027034Z Dilation of Coronary Artery, One Artery with Drug-eluting Intraluminal Device, Percutaneous Approach (ICD-10-PCS; principal; 2020-12-04)
PROC: 4A023N7 Measurement of Cardiac Sampling and Pressure, Left Heart, Percutaneous Approach (ICD-10-PCS; 2020-12-04)
PROC: B54MZZA Ultrasonography of Right Upper Extremity Veins, Guidance (ICD-10-PCS; 2020-12-04)
PROC: B211YZZ Fluoroscopy of Multiple Coronary Arteries using Other Contrast (ICD-10-PCS; 2020-12-04)
DX: I21.4 Non-ST elevation (NSTEMI) myocardial infarction (principal); I50.23 Acute on chronic systolic (congestive) heart failure; I42.0 Dilated cardiomyopathy; E78.5 Hyperlipidemia, unspecified; E87.6 Hypokalemia; I11.0 Hypertensive heart disease with heart failure; I25.10 Atherosclerotic heart disease of native coronary artery without angina pectoris; F10.10 Alcohol abuse, uncomplicated; Y90.9 Presence of alcohol in blood, level not specified; M48.02 Spinal stenosis, cervical region; Z20.822 Contact with and (suspected) exposure to COVID-19; I49.3 Ventricular premature depolarization; J44.9 Chronic obstructive pulmonary disease, unspecified; R41.89 Other symptoms and signs involving cognitive functions and awareness; Z87.891 Personal history of nicotine dependence; Z79.82 Long term (current) use of aspirin; Z79.899 Other long term (current) drug therapy
CPT/HCPCS: 36415; 71045; 80048; 80053; 80061; 82550; 82553; 82962; 83036; 83735; 83880; 84484; 85025; 85347; 87426; 92928; 93005; 93458; 93970; 99291; C1769; C1874; C1887; C1893; J1644; J2250; J2270; J2405; J3010; J3030; J3480; J7060; Q9967